=== PATIENT | male | born 1950 | race Caucasian/White ===

== ENCOUNTER 2022-07-31 08:42 | Outpatient (CLI) | payer MEDICARE, OTHER, SELFPAY ==
[2022-07-31 11:37] LABS: Chloride* 104 mmol/L (96-114); Potassium* 5.2 mmol/L (3.6-5.1); Sodium* 138 mmol/L (135-149)
[2022-07-31 11:40] LABS: Alanine Aminotransferase* 24 U/L (4-50); Blood Urea Nitrogen* 25 mg/dL (7-30); Carbon Dioxide* 28 mmol/L (20-32); Cholesterol* 160 mg/dL (90-199); Estimated Glomerular Filt Rate 81 ml/min; Glucose* 96 mg/dL (60-115); Triglycerides* 48 mg/dL (40-149)
[2022-07-31 11:41] LABS: Calcium* 9.3 mg/dL (8.4-10.6); HDL Cholesterol* 70 mg/dL (>=40); LDL Cholesterol Calculated 80 mg/dL (<100)
[2022-07-31 12:11] LABS: PSA Screen* 1.74 ng/mL (0.10-4.00)
== END 2022-07-31 08:43 | disposition home or self-care (01) ==
PROVIDERS: PCP Family Medicine; Visit Provider Family Medicine
DX: E78.5 Hyperlipidemia, unspecified (principal); I10 Essential (primary) hypertension; Z12.5 Encounter for screening for malignant neoplasm of prostate
CPT/HCPCS: 80048; 80061; 84153; 84460

== ENCOUNTER 2023-08-13 11:13 | Outpatient (CLI) | payer MEDICARE, OTHER, SELFPAY | END 2023-08-13 11:14 | disposition home or self-care (01) | LOC: NFLDREF 11:14 | PROVIDERS: PCP Family Medicine; Visit Provider Family Medicine | DX: E78.2 Mixed hyperlipidemia (principal); I10 Essential (primary) hypertension; Z12.5 Encounter for screening for malignant neoplasm of prostate | CPT/HCPCS: 80048; 80061; 84153 ==

== ENCOUNTER 2024-08-15 11:07 | Outpatient (CLI) | payer MEDICARE, OTHER, SELFPAY | END 2024-08-15 11:08 | disposition home or self-care (01) | PROVIDERS: PCP Family Medicine; Visit Provider Family Medicine | DX: I10 Essential (primary) hypertension (principal); E78.2 Mixed hyperlipidemia; Z12.5 Encounter for screening for malignant neoplasm of prostate; R35.0 Frequency of micturition | CPT/HCPCS: 80048; 80061; 84460; G0103 ==

== ENCOUNTER 2024-11-28 10:44 | Outpatient (CLI) | payer MEDICARE, OTHER, SELFPAY ==
--- NOTE | 2024-11-28 11:40 | P.ANES_ITS ---
Anesthesia Charges Start Date/Time Anesthesia Start Date: 11/28/24 Anesthesia Start Time: 11:20 Stop Date/Time Anesthesia Stop Date: 11/28/24 Anesthesia Stop Time: 11:40 Summary Extremes of Age - Over 70 or under 1: ASSISTANT BUSINESS MANAGER Coding CPT Codes CPT Codes: ANES UPR GI NDSC PX NOS - 82332 ([id number]) P2 - PATIENT W/MILD SYST DISEASE, QZ - ASSISTANT BUSINESS MANAGER SVC W/O CHILD WELFARE SOCIAL WORKER BY Additional Codes: Summary - Extremes of Age - Over 70 or under 1: ASSISTANT BUSINESS MANAGER ([id number])
--- NOTE | 2024-11-28 11:40 | W.ANESCHARGE ---
Anesthesia Charges Start Date/Time Anesthesia Start Date: 11/28/24 Anesthesia Start Time: 11:20 Stop Date/Time Anesthesia Stop Date: 11/28/24 Anesthesia Stop Time: 11:40 Summary Extremes of Age - Over 70 or under 1: FRESH FOOD MANAGER Coding CPT Codes CPT Codes: ANES UPR GI NDSC PX NOS - 72732 ([id number]) P2 - PATIENT W/MILD SYST DISEASE, QZ - FRESH FOOD MANAGER SVC W/O PICK UP TRUCK DRIVER BY Additional Codes: Summary - Extremes of Age - Over 70 or under 1: FRESH FOOD MANAGER ([id number])
== END 2024-11-28 10:45 | disposition home or self-care (01) ==
LOC: OP CLINIC 10:44
PROVIDERS: PCP Family Medicine; Visit Provider Internal Medicine
DX: R13.10 Dysphagia, unspecified (principal)
CPT/HCPCS: 00731; 43239; 88305; 99100; J2704; J3490

== ENCOUNTER 2025-08-21 10:53 | Outpatient (CLI) | payer MEDICARE, OTHER, SELFPAY | END 2025-08-21 10:54 | disposition home or self-care (01) | PROVIDERS: PCP Family Medicine; Visit Provider Family Medicine | DX: I10 Essential (primary) hypertension (principal); E78.2 Mixed hyperlipidemia; Z12.5 Encounter for screening for malignant neoplasm of prostate | CPT/HCPCS: 80048; 80061; 84460; 85025; G0103 ==